=== PATIENT | female | born 1990 | race Caucasian/White ===

== ENCOUNTER 2020-04-13 16:04 | Emergency (ER) | payer OTHER ==
[2020-04-13] MEDS ORDERED: HYDROcodone/APAP 5-325MG 1 EACH TAB PO STA (16:21)
[2020-04-13 16:23] VITALS: RESP 18; TEMP 98
--- NOTE | 2020-04-13 16:53 | XR ---
EXAMINATION TYPE: XR Hip RT and AP Pelvis DATE OF EXAM: 04/13/2020 COMPARISON: NONE HISTORY: Fall injury with pelvic and right hip pain. TECHNIQUE: A single AP view of the pelvis is obtained. Two views of the right hip are obtained. FINDINGS: There is no acute fracture/dislocation evident in the pelvis. The hip and sacroiliac join ts appear symmetric and unremarkable. Occasional scattered pelvic phlebolith. Pubic symphysis is intact. Two views of right hip show no acute fracture or dislocation. No focal lytic or sclerotic lesion see n in the proximal right femur. The overlying soft tissue is unremarkable. IMPRESSION: There is no acute fracture or dislocation in the pelvis or right hip.
--- NOTE | 2020-04-13 16:56 | XR ---
EXAMINATION TYPE: XR lumbar spine 2 or 3V DATE OF EXAM: 04/13/2020 CLINICAL HISTORY: Fall injury with low back pain. History of back surgery 2 weeks earlier for abscess . TECHNIQUE: Frontal, lateral, and oblique images of the lumbar spine are obtained. COMPARISON: None. FINDINGS: There are 5 lumbar type vertebral bodies identified. The lumbar spine shows laminectomy d efects L4 level with spinous process resection. There is grade 1 retrolisthesis L3 on L4. There is en dplate sclerosis at the L3-L4 level with mild height loss involving the inferior L3 vertebra and more moderate height loss or bony resection of the superior one half of L4 vertebra. Densities at the spa ce could reflect desired postsurgical change. Disc space heights otherwise maintained. Suspect partia l resection of the inferior portion of the L2 spinous process. IMPRESSION: No acute fracture or dislocation is seen in the lumbar spine. Suspected post infectious and surgical changes centered at L3-L4 level.
--- NOTE | 2020-04-13 17:28 | US ---
EXAMINATION TYPE: US venous doppler duplex LE RT DATE OF EXAM: 04/13/2020 5:01 PM COMPARISON: NONE CLINICAL HISTORY: pain . Pain right leg SIDE PERFORMED: Right TECHNIQUE: The lower extremity deep venous system is examined utilizing real time linear array sonog tammy with graded compression, doppler sonography and color-flow sonography. VESSELS IMAGED: External Iliac Vein (EIV) Common Femoral Vein Deep Femoral Vein Greater Saphenous Vein * Femoral Vein Popliteal Vein Small Saphenous Vein * Proximal Calf Veins (* superficial vessels) Right Leg: Negative for DVT IMPRESSION: No evidence for DVT.
[2020-04-13] MEDS ORDERED: HYDROmorphone 0.5 MG/0.5 ML SYRINGE IM STA ×2 (18:20→18:21)
--- NOTE | 2020-04-13 18:26 | ED ---
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 Patient reports that she was discharged to [facility] about a week ago. She is currently receiving her IV antibiotics through a PICC line. She reports that her pain has not been well controlled since she left the hospital. She reports that she was receiving Dilaudid at the hospital as well as [place] and now she is only receiving [place]. Reports that her pain is not well controlled. She states that also today she had a fall. She reports that she was using her walker and fell forward landing on her right hip and is now having some right hip pain. Denies any trauma to her head or her neck. Patient also reports that she has been having some pain on her right lower extremity for the last few days posteriorly. She is denying any chest pain shortness of breath, saddle anesthesia, new onset lower extremity weakness or loss of bowel or bladder control. Systemic: Pt denies fatigue, fever/chills, rash. Pt denies weakness, night sweats, weight loss. Neuro: Pt denies headache, visual disturbances, syncope or pre-syncope. HEENT: Pt denies ocular discharge or irritation, otalgia, rhinorrhea, p haryngitis or notable lymphadenopathy. Cardiopulmonary: Pt denies chest pain, SOB, heart palpitations, dyspnea on exertion. Abdominal/GI: Pt denies abdominal pain, n/v/d. : Pt denies dysuria, burning w/ urination, frequency/urgency. Denies new onset urinary or bowel incontinence. MSK: Pt denies loss of strength or function in extremities. Neuro: Pt denies new onset weakness. - Related Data Home Medications Medication Instructions Recorded Confirmed Benztropine Mesylate [Cogentin] 2 mg PO HS@199904/13/20 04/13/20 Cefazolin In Sodium Chloride 2 gm IV TID@0800,1400,199904/13/20 04/13/20 2-0.9gm/1000ml Docusate [Colace] 100 mg PO BID@0800,1600 04/13/20 04/13/20 Doxepin [SINEquan] 10 mg PO HS@199904/13/20 04/13/20 Gabapentin [Neurontin] 200 mg PO TID@00,,04/13/20 04/13/20 HYDROcodone/APAP 10-325MG [[place] 2 tab PO Q6H PRN 04/13/20 04/13/20 10-325] Loperamide [Imodium] 2 mg PO Q6H PRN 04/13/20 04/13/20 S.boulardii/B.coagulans/Fos 942 mg PO BID 04/13/20 04/13/20 [Diff-Stat 471 mg Capsule] Topiramate [Topamax] 25 mg PO HS@199904/13/20 04/13/20 atenoloL [Tenormin] 25 mg PO HS@199904/13/20 04/13/20 lamoTRIgine [LaMICtal] 100 mg PO HS@199904/13/20 04/13/20 methocarbamoL [Robaxin] 750 mg PO TID@00,,04/13/20 04/13/20 polyethylene glycoL 3350 [Miralax] 17 gm PO HS@199904/13/20 04/13/20 Allergies Allergy/AdvReac Type Severity Reaction Status Date / Time Penicillins Allergy Unknown Verified 04/13/20 18:02 Childhood Sulfa (Sulfonamide Allergy Unknown Verified 04/13/20 18:02 Antibiotics) Childhood Review of Systems ROS Statement: Those systems with pertinent positive or pertinent negative responses have been documented in the HPI. ROS Other: All systems not noted in ROS Statement are negative. Past Medical History History of Any Multi-Drug Resistant Organisms: None Reported Past Surgical History: Back Surgery Additional Past Surgical History / Comment(s): Recent back surgery L3-L4 03/2020 for abscess Past Psychological History: Anxiety, Bipolar, Depression, PTSD, Schizophrenia Smoking Status: Current every day smoker Past Alcohol Use History: None Reported Past Drug Use History: Heroin, IV Drug Use General Exam - General Exam Comments Initial Comments: Constitutional: NAD, AOX3, Pt has pleasant affect. HEENT: NC/AT, trachea midline, neck supple, no lymphadenopathy. External ears appear normal, without discharge. Mucous membranes moist. Eyes PERRLA, EOM intact. There is no scleral icterus. No pallor noted. Cardiopulmonary: RRR, no murmurs, rubs or gallops, no JVD noted. Lungs CTAB in anterior and posterior douglas. No peripheral edema. Abdominal exam: Abdomen soft and non-distended. Abdomen non-tender to palpation in all 4 quadrants. Bowel sounds active in LLQ. No hepatosplenomegaly. No ecchymosis Neuro: CN II-XII grossly intact. No nuchal rigidity. No raccon eyes, no childers sign, no hemotympanum. No cervical spinal tenderness. MSK: Right posterior calf is mildly tender to palpation. Left posterior calf nontender. Homans sign is negative. Distal pulses intact and equal. 5/5 strength lower extremities bilaterally. Derm: Incision site is nonerythematous no discharge nonedematous dry. Limitations: physical limitation Course Vital Signs 04/13/20 04/13/20 16:06 17:22 Temperature 98 F Pulse Rate 91 89 Respiratory 18 18 Rate Blood Pressure 126/84 114/84 O2 Sat by Pulse 99 97 Oximetry Medical Decision Making - Medical Decision Making 29-year-old female patient presents to ED for evaluation of fall with right hip pain as well as some back pain has not been well controlled since she left the hospital. Receiving IV narcotic pain medication. Patient vital signs are stable, afebrile. Physical exam displayed equal strength and sensation in lower extremities. No posterior calf mildly tender. Ultrasound right lower extremity is negative for DVT. Plain film lumbar spine does not display any acute fracture dislocation. Suspected post infectious and surgical changes at L3-L4 level. Plain film of hip negative for any acute fracture dislocation. Patient will be discharged with outpatient follow-up with her primary care provider as well as the surgeon. Case discussed with Dr. Cavanaugh/ Disposition Clinical Impression: Back pain Disposition: HOME SELF-CARE Condition: Stable Instructions (If sedation given, give patient instructions): Acute Low Back Pain (ED) Additional Instructions: follow up with primary care provider as well as your surgeon tomorrow. Return to ER if any worsening symptoms. Is patient prescribed a controlled substance at d/c from ED?: No Referrals: Rashad Cameron MD [Primary Care Provider] - 1-2 days
[2020-04-13 18:51] VITALS: BP 125/74; PULSE 90
[2020-04-13] MEDS ORDERED: HYDROmorphone 0.5 MG/0.5 ML SYRINGE IVP STA (18:58)
== END 2020-04-13 20:17 | disposition home or self-care (01) ==
LOC: EC 16:04
DX: M25.551 Pain in right hip (principal); M54.9 Dorsalgia, unspecified; F41.9 Anxiety disorder, unspecified; F31.9 Bipolar disorder, unspecified; F43.10 Post-traumatic stress disorder, unspecified; F17.200 Nicotine dependence, unspecified, uncomplicated; Z79.899 Other long term (current) drug therapy; Z88.0 Allergy status to penicillin; Z88.2 Allergy status to sulfonamides; Z98.890 Other specified postprocedural states; W19.XXXA Unspecified fall, initial encounter
CPT/HCPCS: 72100; 73502; 93971; 99284; 96374; J1170

== ENCOUNTER 2021-10-17 13:37 | Emergency (ER) | payer OTHER ==
[2021-10-17 13:50] VITALS: BP 122/71; PULSE 117; RESP 18; TEMP 97.7
--- NOTE | 2021-10-17 16:07 | ED ---
Psych HPI - General Source: patient, RN notes reviewed Mode of arrival: ambulatory Limitations: no limitations <Johan Mcclain - Last Filed: 10/17/21 16:05> <Harpreet Sood - Last Filed: 10/17/21 20:13> - General Chief Complaint: Psychiatric Symptoms Stated Complaint: EPS eval Time Seen by Provider: 10/17/21 13:50 - History of Present Illness Initial Comments: This a 31-year-old female presents emergency Department with chief complaint of depression, suicidal ideation. Patient states that she has low to get she does have a history of drug abuse. Patient states that she does not feel safe at home she's been having thoughts and voices telling to harm herself. Patient denies any self Dr. Valverde at this time. (Johan Mcclain) - Related Data Home Medications Medication Instructions Recorded Confirmed lamoTRIgine [LaMICtal] 100 mg PO BID 04/13/20 10/17/21 Paliperidone IM [Invega Sustenna] 234 mg IM Q30D 10/17/21 10/17/21 Rivaroxaban [Xarelto] 20 mg PO DAILY 10/17/21 10/17/21 hydrOXYzine pamoate [hydrOXYzine 25 mg PO QID PRN 10/17/21 10/17/21 PAMOATE] metFORMIN HCL [Glucophage] 1,000 mg PO BID 10/17/21 10/17/21 Allergies Allergy/AdvReac Type Severity Reaction Status Date / Time Penicillins Allergy Unknown Verified 10/17/21 18:33 Childhood Sulfa (Sulfonamide Allergy Unknown Verified 10/17/21 18:33 Antibiotics) Childhood Review of Systems ROS Other: All systems not noted in ROS Statement are negative. <Johan Mcclain - Last Filed: 10/17/21 16:05> ROS Other: All systems not noted in ROS Statement are negative. <Harpreet Sood - Last Filed: 10/17/21 20:13> ROS Statement: Those systems with pertinent positive or pertinent negative responses have been documented in the HPI. Past Medical History Past Medical History: No Reported History History of Any Multi-Drug Resistant Organisms: None Reported Past Surgical History: Back Surgery Additional Past Surgical History / Comment(s): Recent back surgery L3-L4 03/2020 for abscess Past Psychological History: Anxiety, Bipolar, Depression, PTSD, Schizophrenia Smoking Status: Current every day smoker Past Alcohol Use History: None Reported Past Drug Use History: Heroin, IV Drug Use <Johan Mcclain M - Last Filed: 10/17/21 16:05> General Exam Limitations: no limitations General appearance: alert, in no apparent distress Head exam: Present: atraumatic, normocephalic, normal inspection Eye exam: Present: normal appearance, PERRL, EOMI. Absent: scleral icterus, conjunctival injection, periorbital swelling ENT exam: Present: normal exam, normal oropharynx, mucous membranes moist Neck exam: Present: normal inspection, full ROM. Absent: tenderness, meningismus, lymphadenopathy Respiratory exam: Present: normal lung sounds bilaterally. Absent: respiratory distress, wheezes, rales, rhonchi, stridor Cardiovascular Exam: Present: normal rhythm, tachycardia, normal heart sounds. Absent: systolic murmur, diastolic murmur, rubs, gallop, clicks GI/Abdominal exam: Present: soft, normal bowel sounds. Absent: distended, tenderness, guarding, rebound, rigid Neurological exam: Present: alert, oriented X3 Psychiatric exam: Present: depressed <Johan Mcclain M - Last Filed: 10/17/21 16:05> Course Vital Signs 10/17/21 13:47 Temperature 97.7 F Pulse Rate 117 H Respiratory 18 Rate Blood Pressure 122/71 O2 Sat by Pulse 96 Oximetry Medical Decision Making <Harpreet Sood - Last Filed: 10/17/21 20:13> - Medical Decision Making The patient rested comfortably throughout the afternoon she was ventilated by EPS service he currently isn't a risk to herself or anyone else he'll be discharged with outpatient referrals (Harpreet Sood) - Lab Data Lab Results 10/17/21 Range/Units 17:58 Urine Opiates Screen Not Detected (NotDetected) Ur Oxycodone Screen Not Detected (NotDetected) Urine Methadone Screen Not Detected (NotDetected) Ur Propoxyphene Screen Not Detected (NotDetected) Ur Barbiturates Screen Not Detected (NotDetected) U Tricyclic Antidepress Not Detected (NotDetected) Ur Phencyclidine Scrn Not Detected (NotDetected) Ur Amphetamines Screen Not Detected (NotDetected) U Methamphetamines Scrn Not Detected (NotDetected) U Benzodiazepines Scrn Not Detected (NotDetected) Urine Cocaine Screen Not Detected (NotDetected) U Marijuana (THC) Screen Detected H (NotDetected) Disposition <Johan Mcclain - Last Filed: 10/17/21 16:05> Is patient prescribed a controlled substance at d/c from ED?: No <Harpreet Sood - Last Filed: 10/17/21 20:13> Clinical Impression: Depression, Anxiety Disposition: HOME SELF-CARE Condition: Good Instructions (If sedation given, give patient instructions): Depression (ED), Anxiety (ED) Referrals: Chris Martinez MD [Primary Care Provider] - 1-2 days
[2021-10-17 18:14] LABS: Amphetamine Screen,Urine Not Detected (NotDetected); Barbiturate Screen,Urine Not Detected (NotDetected); Benzodiazepines Screen,Urine Not Detected (NotDetected); Cocaine Screen,Urine Not Detected (NotDetected); Methadone Screen, Urine Not Detected (NotDetected); Opiate Screen,Urine Not Detected (NotDetected); Oxycodone Screen, Urine Not Detected (NotDetected); Phencyclidine Screen,Urine Not Detected (NotDetected); Tricyclic Antidepressant,Urine Not Detected (NotDetected); Urn Cannabinoid Scrn Detected (NotDetected)
== END 2021-10-17 20:25 | disposition home or self-care (01) ==
LOC: EC 13:37
DX: F32.A Depression, unspecified (principal); F41.9 Anxiety disorder, unspecified; F17.200 Nicotine dependence, unspecified, uncomplicated; F11.90 Opioid use, unspecified, uncomplicated; Z79.899 Other long term (current) drug therapy
CPT/HCPCS: 80306; 82075; 99284